=== PATIENT | female | born 1970 | race Caucasian/White ===

== ENCOUNTER 2016-08-10 12:29 | Emergency (ER) | payer OTHER ==
[~2016-08-10] VITALS: Ht 165.1 cm; Wt 68.9 kg
[~2016-08-10 12:29] MED LIST: KEFLEX500 MG PO; MOTRIN800 MG PO; VICODIN 500 MG-1 TAB PO
[2016-08-10 12:36] VITALS: BP 145/99
[2016-08-10 12:50] LABS: BASO % 0.3 % (0.0-1.0); EOS # 0.2 10*3/uL (0.0-0.4); EOS % 1.4 % (1.0-4.0); HEMOGLOBIN 15.4 g/dl (12.0-16.0); LYMPH # 1.8 10*3/uL (1.3-4.4); LYMPH % 11.7 % (27.0-41.0); MEAN CELL VOLUME 90.6 fl (81.0-99.0); MEAN CORPUSCULAR HGB 30.3 pg (27.0-31.0); MEAN CORPUSCULAR HGB CONC 33.5 g/dl (33.0-37.0); MEAN PLATELET VOLUME 10.4 fl (9.6-12.3); MONO # 0.9 10*3/uL (0.1-1.0); MONO % 5.6 % (3.0-9.0); NEUT # 12.3 10*3/uL (2.3-7.9); NEUT % 80.7 % (47.0-73.0); PLATELET COUNT AUTOMATED 267 10*3/uL (130-400); RED BLOOD COUNT 5.08 10*6/uL (4.10-5.10); RED CELL DISTRI WIDTH 13.6 % (0-14.5); WHITE BLOOD COUNT 15.3 10*3/uL (4.8-10.8)
[2016-08-10 12:58] LABS: PROTHROMBIN TIME 10.1 SECONDS (9.0-12.4)
[2016-08-10 13:07] LABS: ALBUMIN 4.4 gm/dl (3.1-4.5); ALKALINE PHOSPHATASE 94 U/L (45-117); BILIRUBIN, TOTAL 0.4 mg/dl (0.2-1.0); BUN 14 mg/dl (7-24); CARBON DIOXIDE 24 mmol/L (21-32); CHLORIDE 109 mmol/L (98-107); EST GLOM FILT AFRICAN AMERICAN > 60 ml/min; GLUCOSE 110 mg/dL (65-99); MAGNESIUM 1.8 mg/dL (1.5-2.1); POTASSIUM 4.5 mmol/L (3.5-5.1); SGOT/AST 18 IU/L (3-35); SGPT/ALT 36 U/L (12-78); SODIUM 141 mmol/L (136-145); TOTAL PROTEIN 7.8 gm/dL (6.4-8.2)
[2016-08-10 13:08] LABS: TROPONIN I < 0.015 ng/ml (<0.045)
== END 2016-08-10 14:42 | disposition admitted as inpatient to this hospital (09) ==
LOC: ED 12:29 → 4E 13:52 → ED 13:52 → EDHOLD 13:52 → 4E 14:32 → EDHOLD 14:32 → 4E 14:32 → ED 14:42
PROVIDERS: Student in an Organized Health Care Education/Training Program
DX: R07.9 Chest pain, unspecified (principal); F17.200 Nicotine dependence, unspecified, uncomplicated; G43.909 Migraine, unspecified, not intractable, without status migrainosus

== ENCOUNTER 2019-09-16 16:20 | Emergency (ER) | payer OTHER ==
[~2019-09-16] VITALS: Ht 165.1 cm; Wt 64.4 kg
== END 2019-09-16 17:05 | disposition left against medical advice (07) ==
LOC: ED 16:20
DX: J02.9 Acute pharyngitis, unspecified (principal); I10 Essential (primary) hypertension; G43.909 Migraine, unspecified, not intractable, without status migrainosus; F17.200 Nicotine dependence, unspecified, uncomplicated; F12.90 Cannabis use, unspecified, uncomplicated; Z90.89 Acquired absence of other organs; Z98.890 Other specified postprocedural states